=== PATIENT | female | born 1955 | race African-American/Black ===

== ENCOUNTER 2018-01-17 22:40 | Emergency (ER) | payer MEDICARE, MEDICAID ==
[~2018-01-17] VITALS: Ht 165.1 cm; Wt 68.0 kg
[2018-01-18 00:07] VITALS: BP 154/82
== END 2018-01-18 00:07 | disposition home or self-care (01) ==
LOC: ER 22:40
DX: E11.649 Type 2 diabetes mellitus with hypoglycemia without coma (principal); Z79.4 Long term (current) use of insulin; N28.9 Disorder of kidney and ureter, unspecified
CPT/HCPCS: 82962; 99283

== ENCOUNTER 2021-12-03 17:22 | Inpatient (IN) | payer MEDICARE, MEDICAID ==
[~2021-12-03] VITALS: Ht 165.1 cm; Wt 73.0 kg
[~2021-12-03 17:22] MED LIST: ATOR20TA65 MT; CLOP-31 PO; GABA-529 MT; METO75TA MT; PRED5TAB PO; PROT20 MT; TACR0.00 MC
[2021-12-03] MEDS ORDERED: CEFEPIME 1,000 MG in DEXTROSE 5% WATER 50 ML IV SCH (18:15)
[2021-12-03] MEDS ORDERED: VANCOMYCIN 1 G PREMIX 200 ML IV ONE (18:15)
[2021-12-03] MEDS ORDERED: ACETAMINOPHEN 325MG TABLET PO ONE (18:15)
[2021-12-03 18:51] LABS: HEMATOCRIT. 27.9 % (36.0-48.0); HEMOGLOBIN. 8.3 g/dL (12.0-16.0); MEAN CORPUSCULAR HEMOGLOBIN 21.1 pg (28.0-32.0); MEAN CORPUSCULAR VOLUME 70.9 fL (81.0-99.0); MEAN PLATELET VOLUME 7.9 fl (7.4-10.4); PLATELET 300 x1000/uL (130-400); RED BLOOD CELL COUNT 3.93 mill/uL (4.2-5.4)
[2021-12-03 18:54] LABS: CHLORIDE 121 mEq/L (98-107)
[2021-12-03 19:00] LABS: ETHANOL BLOOD < 10 mg/dL
[2021-12-03 19:03] LABS: CREATINE KINASE 52 IU/L (26-192)
[2021-12-03 19:23] LABS: PLATELET ESTIMATE NORMAL
[2021-12-03 20:20] LABS: BG BASE EXCESS -9.2 mmol/L (-2.0-2.0); BG CARBOXYHEMOGLOBIN 0.6 % (0.5-1.5); BG DEOXYHEMOGLOBIN 3.1 % (0.0-5.0); BG FRACTION INSPIRED OXYGEN 21; BG HCO3 ACT 15.7 mmol/L (22.0-26.0); BG METHEMOGLOBIN 0.5 % (0.0-1.5); BG OXYGEN SATURATION 96.9 % (92.0-98.5); BG OXYHEMOGLOBIN 95.8 % (94.0-97.0); BG PCO2 29.9 mmHg (35.0-45.0); BG PH 7.337 (7.350-7.450); BG PO2 91.6 mmHg (75.0-100.0); BG SAMPLE SITE RIGHT BRACHIAL; BG VENT MODE ROOM AIR
[2021-12-03] MEDS ORDERED: ONDANSETRON HCL 4MG/2ML INJ IV PRN (20:30)
[2021-12-03] MEDS ORDERED: ACETAMINOPHEN 325MG TABLET PO PRN (20:30)
[2021-12-03] MEDS ORDERED: DOCUSATE SODIUM 100MG CAPSULE PO PRN (20:30)
[2021-12-03] MEDS ORDERED: MAGNESIUM/ALUMINUM HYDROXIDE/SIMETHICONE 30ML UDC PO PRN (20:30)
[2021-12-03] MEDS ORDERED: CLONIDINE 0.1MG TABLET PO PRN (20:30)
[2021-12-03] MEDS ORDERED: SODIUM BICARBONATE 8.4% 1 MEQ/ML 50ML SYR IV NR (20:45)
[2021-12-03] MEDS: AMLODIPINE 10MG TABLET PO SCH (21:00)
[2021-12-03] MEDS: PIPERACILLIN/TAZOBACTAM 3.375 G in DEXTROSE 5% WATER 50 ML IV SCH (21:26)
[2021-12-03] MEDS: SODIUM CHLORIDE 0.9% 1,000 ML IV SCH (21:26)
[2021-12-03 22:51] LABS: CLARITY URINE TURBID (CLEAR); COLOR URINE YELLOW (YELLOW); KETONES URINE NEGATIVE (NEGATIVE); LEUKOCYTE ESTERASE URINE 3+ (NEGATIVE); NITRITE URINE POSITIVE (NEGATIVE); OCCULT BLOOD URINE 1+ (NEGATIVE); PROTEIN URINE 3+ (NEGATIVE); SPECIFIC GRAVITY URINE 1.012 (1.005-1.030); UROBILINOGEN URINE 0.2 E.U./dL (0.2-1.0)
[2021-12-03 23:05] LABS: *AMPHETAMINES SCREEN URINE NEGATIVE (NEGATIVE); *BARBITURATES SCREEN URINE NEGATIVE (NEGATIVE); *COCAINE SCREEN URINE NEGATIVE (NEGATIVE); METHADONE URINE SCREEN NEGATIVE (NEGATIVE); OPIATES URINE SCREEN NEGATIVE (NEGATIVE); PHENCYCLIDINE URINE SCREEN NEGATIVE (NEGATIVE)
[2021-12-03 23:06] LABS: CANNABINOID URINE SCREEN NEGATIVE (NEGATIVE)
[2021-12-03 23:07] LABS: *BENZODIAZEPINES SCREEN URINE NEGATIVE (NEGATIVE)
[2021-12-04 04:59] LABS: HEMATOCRIT. 27.9 % (36.0-48.0); HEMOGLOBIN. 8.7 g/dL (12.0-16.0); MEAN CORPUSCULAR HEMOGLOBIN 22.2 pg (28.0-32.0); MEAN CORPUSCULAR VOLUME 71.3 fL (81.0-99.0); MEAN PLATELET VOLUME 7.6 fl (7.4-10.4); PLATELET 286 x1000/uL (130-400); RED BLOOD CELL COUNT 3.92 mill/uL (4.2-5.4); RED CELL DISTRIBUTION WIDTH 19.3 % (11.6-14.6)
[2021-12-04 05:03] LABS: CHLORIDE 114 mEq/L (98-107)
[2021-12-04 05:11] LABS: HDL CHOLESTEROL 43 mg/dL (40-59); LDL CHOLESTEROL 76 mg/dL (5-100)
[2021-12-04 06:08] LABS: PLATELET ESTIMATE NORMAL
[2021-12-04] MEDS: PIPERACILLIN/TAZOBACTAM 3.375 G in DEXTROSE 5% WATER 50 ML IV SCH ×2 (09:00→20:11)
[2021-12-04] MEDS: SODIUM CHLORIDE 0.9% 1,000 ML IV SCH (09:51)
[2021-12-04] MEDS: AMLODIPINE 10MG TABLET PO SCH (10:18)
[2021-12-04] MEDS: INSULIN GLARGINE UD 100 UNITS/ML SYR SUBCUT SCH (13:00)
[2021-12-04 21:58] VITALS: BP 123/57
[2021-12-04 22:00] VITALS: BP 123/57
[2021-12-05] VITALS (8 sets, daily range): BP systolic 97–122; BP diastolic 39–89
[2021-12-05] MEDS: SODIUM CHLORIDE 0.9% 1,000 ML IV SCH ×3 (06:52→17:53)
[2021-12-05 07:18] LABS: CHLORIDE 115 mEq/L (98-107)
[2021-12-05 07:21] LABS: HEMATOCRIT. 23.2 % (36.0-48.0); HEMOGLOBIN. 7.1 g/dL (12.0-16.0); MEAN CORPUSCULAR VOLUME 72.1 fL (81.0-99.0); MEAN PLATELET VOLUME 7.9 fl (7.4-10.4); PLATELET 208 x1000/uL (130-400); RED BLOOD CELL COUNT 3.21 mill/uL (4.2-5.4); RED CELL DISTRIBUTION WIDTH 19.6 % (11.6-14.6)
[2021-12-05] MEDS: AMLODIPINE 10MG TABLET PO SCH (09:00)
[2021-12-05] MEDS: INSULIN GLARGINE UD 100 UNITS/ML SYR SUBCUT SCH (10:37)
[2021-12-05] MEDS: PIPERACILLIN/TAZOBACTAM 3.375 G in DEXTROSE 5% WATER 50 ML IV SCH ×2 (11:08→22:20)
[2021-12-05 11:42] LABS: PLATELET ESTIMATE NORMAL
[2021-12-05] MEDS ORDERED: DEXTROSE 50% WATER 50ML SYRINGE IV PRN (12:15)
[2021-12-05] MEDS: INSULIN LISPRO 100 UNITS/ML SUBCUT SCH ×3 (13:36→21:00)
[2021-12-05] MEDS: BLOOD SUGAR DIAGNOSTIC STRIP TEST SCH ×2 (17:14→21:00)
[2021-12-06] VITALS: BP 120/51
[2021-12-06 03:31] LABS: CLARITY URINE CLOUDY (CLEAR); COLOR URINE YELLOW (YELLOW); KETONES URINE NEGATIVE (NEGATIVE); LEUKOCYTE ESTERASE URINE 2+ (NEGATIVE); NITRITE URINE NEGATIVE (NEGATIVE); OCCULT BLOOD URINE 1+ (NEGATIVE); PH URINE 5.5 (4.5-8.0); PROTEIN URINE 1+ (NEGATIVE); SPECIFIC GRAVITY URINE 1.013 (1.005-1.030); UROBILINOGEN URINE 0.2 E.U./dL (0.2-1.0)
[2021-12-06 04:00] VITALS: BP 148/42
[2021-12-06] MEDS: BLOOD SUGAR DIAGNOSTIC STRIP TEST SCH ×4 (05:39→20:37)
[2021-12-06] MEDS: SODIUM CHLORIDE 0.9% 1,000 ML IV SCH ×2 (05:40→20:24)
[2021-12-06] MEDS: INSULIN LISPRO 100 UNITS/ML SUBCUT SCH ×4 (05:47→21:00)
[2021-12-06 07:34] LABS: BASOPHILS % 0.5 % (0.0-2.0); EOSINOPHILS % 3.3 % (0.0-5.0); HEMATOCRIT. 23.8 % (36.0-48.0); HEMOGLOBIN. 7.3 g/dL (12.0-16.0); LYMPHOCYTES % 7.6 % (20.0-50.0); MEAN CORPUSCULAR HEMOGLOBIN 21.7 pg (28.0-32.0); MEAN CORPUSCULAR VOLUME 70.6 fL (81.0-99.0); MONOCYTES % 7.3 % (2.0-8.0); NEUTROPHILS % 81.3 % (40.0-76.0); PLATELET 244 x1000/uL (130-400); RED BLOOD CELL COUNT 3.37 mill/uL (4.2-5.4); RED CELL DISTRIBUTION WIDTH 19.4 % (11.6-14.6)
[2021-12-06 08:00] VITALS: BP 138/54
[2021-12-06] MEDS: PIPERACILLIN/TAZOBACTAM 3.375 G in DEXTROSE 5% WATER 50 ML IV SCH ×2 (08:17→20:25)
[2021-12-06] MEDS: PREDNISONE 5MG TABLET PO SCH ×2 (08:44→16:30)
[2021-12-06] MEDS: AMLODIPINE 10MG TABLET PO SCH (08:44)
[2021-12-06] MEDS ORDERED: TACROLIMUS 1MG/PACKET PO SCH (09:00)
[2021-12-06] MEDS: INSULIN GLARGINE UD 100 UNITS/ML SYR SUBCUT SCH (10:48)
[2021-12-06] MEDS: TACROLIMUS 1MG CAPSULE PO SCH (10:52)
[2021-12-06 12:00] VITALS: BP 121/60
[2021-12-06 16:00] VITALS: BP 130/60
[2021-12-06] MEDS: GABAPENTIN 300MG CAPSULE PO SCH ×2 (16:29→21:00)
[2021-12-06] MEDS ORDERED: EPOETIN ALFA-EPBX 4,000 UNIT/ML VIAL SUBCUT SCH (21:00)
[2021-12-06] MEDS ORDERED: IRON SUCROSE COMPLEX 100 MG/5 ML ML IV SCH (21:00)
[2021-12-07] VITALS: BP 128/72
[2021-12-07 04:00] VITALS: BP 132/84
[2021-12-07] MEDS: BLOOD SUGAR DIAGNOSTIC STRIP TEST SCH ×2 (06:15→12:28)
[2021-12-07] MEDS: GABAPENTIN 300MG CAPSULE PO SCH ×2 (06:16→13:05)
[2021-12-07] MEDS: INSULIN LISPRO 100 UNITS/ML SUBCUT SCH ×2 (07:15→13:06)
[2021-12-07 08:00] VITALS: BP 132/51
[2021-12-07] MEDS: SODIUM CHLORIDE 0.9% 1,000 ML IV SCH (09:50)
[2021-12-07] MEDS: PREDNISONE 5MG TABLET PO SCH (09:50)
[2021-12-07] MEDS: TACROLIMUS 1MG CAPSULE PO SCH (09:51)
[2021-12-07] MEDS: PIPERACILLIN/TAZOBACTAM 3.375 G in DEXTROSE 5% WATER 50 ML IV SCH (09:51)
[2021-12-07] MEDS: AMLODIPINE 10MG TABLET PO SCH (09:51)
[2021-12-07] MEDS: INSULIN GLARGINE UD 100 UNITS/ML SYR SUBCUT SCH (10:00)
[2021-12-07 12:00] VITALS: BP 112/63
[2021-12-07 14:35] VITALS: BP 112/63
== END 2021-12-07 17:05 | disposition home health service (06) | DRG 871 ==
LOC: ER 17:22 → MICUSO 19:40 → 5WST 12-04 20:35
PROVIDERS: ADMIT Hospitalist; ATTEND Hospitalist
DX: A41.9 Sepsis, unspecified organism (principal); E43 Unspecified severe protein-calorie malnutrition; N17.0 Acute kidney failure with tubular necrosis; N39.0 Urinary tract infection, site not specified; Z94.0 Kidney transplant status; E87.2 Acidosis; E11.22 Type 2 diabetes mellitus with diabetic chronic kidney disease; I12.9 Hypertensive chronic kidney disease with stage 1 through stage 4 chronic kidney disease, or unspecified chronic kidney disease; N18.9 Chronic kidney disease, unspecified; Z20.822 Contact with and (suspected) exposure to COVID-19; D64.9 Anemia, unspecified; E88.09 Other disorders of plasma-protein metabolism, not elsewhere classified; Z87.440 Personal history of urinary (tract) infections; Z79.4 Long term (current) use of insulin; Z91.14 Patient's other noncompliance with medication regimen; Z91.19 Patient's noncompliance with other medical treatment and regimen; Z68.26 Body mass index [BMI] 26.0-26.9, adult; E11.65 Type 2 diabetes mellitus with hyperglycemia
CPT/HCPCS: 36415; 36600; 71045; 76770; 80048; 80053; 80061; 80197; 80305; 80307; 80320; 80329; 81003; 82010; 82140; 82375; 82550; 82805; 82962; 83036; 83605; 83880; 84484; 85025; 87426; 99291; J0692; J0885; J1815; J2543; J3370; J3490; J7060; J7507; J7512; G0480

== ENCOUNTER 2022-03-06 18:09 | Inpatient (IN) | payer MEDICARE, MEDICAID ==
[~2022-03-06] VITALS: Ht 157.5 cm; Wt 56.7 kg
[2022-03-06 19:26] LABS: HEMATOCRIT. 33.3 % (36.0-48.0); HEMOGLOBIN. 10.4 g/dL (12.0-16.0); MEAN CORPUSCULAR HEMOGLOBIN 23.3 pg (28.0-32.0); MEAN CORPUSCULAR VOLUME 74.3 fL (81.0-99.0); MEAN PLATELET VOLUME 7.8 fl (7.4-10.4); PLATELET 305 x1000/uL (130-400); RED BLOOD CELL COUNT 4.48 mill/uL (4.2-5.4); RED CELL DISTRIBUTION WIDTH 16.7 % (11.6-14.6)
[2022-03-06 19:35] LABS: CHLORIDE 105 mEq/L (98-107)
[2022-03-06 19:38] LABS: ETHANOL BLOOD < 10 mg/dL
[2022-03-06 23:26] LABS: PLATELET ESTIMATE NORMAL
[2022-03-07] MEDS ORDERED: CALCIUM GLUCONATE 1GM PREMIX 50 ML IV ONE (00:30)
[2022-03-07] MEDS ORDERED: DEXTROSE 50% WATER 50ML SYRINGE IV PRN (02:45)
[2022-03-07] MEDS: BLOOD SUGAR DIAGNOSTIC STRIP TEST SCH ×5 (02:53→21:02)
[2022-03-07] MEDS: INSULIN LISPRO 100 UNITS/ML SUBCUT SCH ×5 (02:53→21:21)
[2022-03-07 04:00] VITALS: BP 137/63
[2022-03-07] MEDS ORDERED: ACETAMINOPHEN 325MG TABLET PO PRN (05:30)
[2022-03-07 08:00] VITALS: BP 90/64
[2022-03-07] MEDS: PANTOPRAZOLE 40MG DR TABLET PO SCH (08:35)
[2022-03-07] MEDS: GABAPENTIN 100MG CAPSULE PO SCH ×2 (08:35→17:50)
[2022-03-07] MEDS: CLOPIDOGREL 75MG TABLET PO SCH (08:35)
[2022-03-07] MEDS ORDERED: METOPROLOL TARTRATE 50MG TABLET PO SCH (09:00)
[2022-03-07] MEDS: SODIUM CHLORIDE 0.9% 1,000 ML IV SCH (09:00)
[2022-03-07] MEDS: INSULIN GLARGINE 100 UNITS/ML SUBCUT SCH ×2 (10:00→21:11)
[2022-03-07 12:00] VITALS: BP 110/54
[2022-03-07 16:00] VITALS: BP 117/52
[2022-03-07 16:36] LABS: HEMATOCRIT. 32.2 % (36.0-48.0); HEMOGLOBIN. 9.6 g/dL (12.0-16.0); MEAN CORPUSCULAR HEMOGLOBIN 22.7 pg (28.0-32.0); MEAN CORPUSCULAR VOLUME 76.5 fL (81.0-99.0); MEAN PLATELET VOLUME 7.5 fl (7.4-10.4); PLATELET 294 x1000/uL (130-400); RED BLOOD CELL COUNT 4.21 mill/uL (4.2-5.4); RED CELL DISTRIBUTION WIDTH 16.9 % (11.6-14.6)
[2022-03-07 16:44] LABS: PHOSPHORUS 3.6 mg/dL (2.5-4.9)
[2022-03-07 19:30] LABS: PLATELET ESTIMATE NORMAL
[2022-03-07 20:00] VITALS: BP 153/53
[2022-03-07] MEDS: ATORVASTATIN CALCIUM 20MG TABLET PO SCH (21:11)
[2022-03-08] VITALS: BP 105/44
[2022-03-08 01:57] LABS: CLARITY URINE TURBID (CLEAR); COLOR URINE YELLOW (YELLOW); KETONES URINE TRACE (NEGATIVE); LEUKOCYTE ESTERASE URINE 3+ (NEGATIVE); NITRITE URINE NEGATIVE (NEGATIVE); OCCULT BLOOD URINE 2+ (NEGATIVE); PROTEIN URINE 2+ (NEGATIVE); SPECIFIC GRAVITY URINE 1.013 (1.005-1.030); UROBILINOGEN URINE 0.2 E.U./dL (0.2-1.0)
[2022-03-08 04:00] VITALS: BP 107/50
[2022-03-08] MEDS: SODIUM CHLORIDE 0.9% 1,000 ML IV SCH (04:21)
[2022-03-08] MEDS: BLOOD SUGAR DIAGNOSTIC STRIP TEST SCH ×4 (05:41→21:23)
[2022-03-08 06:46] LABS: MEAN CORPUSCULAR HEMOGLOBIN 23.3 pg (28.0-32.0); MEAN CORPUSCULAR VOLUME 77.2 fL (81.0-99.0); MEAN PLATELET VOLUME 7.6 fl (7.4-10.4); PLATELET 239 x1000/uL (130-400); RED BLOOD CELL COUNT 4.27 mill/uL (4.2-5.4); RED CELL DISTRIBUTION WIDTH 17.3 % (11.6-14.6)
[2022-03-08 08:00] VITALS: BP 131/42
[2022-03-08] MEDS: INSULIN LISPRO 100 UNITS/ML SUBCUT SCH ×4 (09:19→21:22)
[2022-03-08] MEDS: PANTOPRAZOLE 40MG DR TABLET PO SCH (09:19)
[2022-03-08] MEDS: GABAPENTIN 100MG CAPSULE PO SCH ×2 (09:19→18:07)
[2022-03-08] MEDS: CLOPIDOGREL 75MG TABLET PO SCH (09:19)
[2022-03-08] MEDS: INSULIN GLARGINE 100 UNITS/ML SUBCUT SCH ×2 (09:27→21:23)
[2022-03-08 10:00] LABS: PLATELET ESTIMATE NORMAL
[2022-03-08] MEDS ORDERED: VANCOMYCIN 1.25GM PMX (XELLIA) 250 ML IV SCH (11:00)
[2022-03-08 12:00] VITALS: BP 136/38
[2022-03-08] MEDS: TACROLIMUS 1MG CAPSULE PO SCH ×2 (14:18→18:07)
[2022-03-08] MEDS: PREDNISONE 5MG TABLET PO SCH (14:18)
[2022-03-08 16:00] VITALS: BP 131/42
[2022-03-08 20:00] VITALS: BP 110/43
[2022-03-08] MEDS: ATORVASTATIN CALCIUM 20MG TABLET PO SCH (21:18)
[2022-03-08] MEDS: LINEZOLID 600 MG PREMIX 300 ML IV SCH (21:23)
[2022-03-09] VITALS: BP 110/68
[2022-03-09 04:00] VITALS: BP 113/69
[2022-03-09] MEDS: SODIUM CHLORIDE 0.9% 1,000 ML IV SCH ×2 (04:38→15:15)
[2022-03-09] MEDS: BLOOD SUGAR DIAGNOSTIC STRIP TEST SCH ×4 (06:09→21:21)
[2022-03-09 08:00] VITALS: BP 95/34
[2022-03-09] MEDS: CLOPIDOGREL 75MG TABLET PO SCH (08:18)
[2022-03-09] MEDS: GABAPENTIN 100MG CAPSULE PO SCH ×2 (08:18→16:31)
[2022-03-09] MEDS: PANTOPRAZOLE 40MG DR TABLET PO SCH (08:18)
[2022-03-09] MEDS: TACROLIMUS 1MG CAPSULE PO SCH ×2 (08:18→16:31)
[2022-03-09] MEDS: PREDNISONE 5MG TABLET PO SCH (08:18)
[2022-03-09] MEDS: INSULIN LISPRO 100 UNITS/ML SUBCUT SCH ×4 (08:19→21:21)
[2022-03-09] MEDS: LINEZOLID 600 MG PREMIX 300 ML IV SCH ×2 (08:26→21:21)
[2022-03-09 09:14] LABS: HEMATOCRIT. 33.1 % (36.0-48.0); HEMOGLOBIN. 9.8 g/dL (12.0-16.0); MEAN CORPUSCULAR HEMOGLOBIN 23.1 pg (28.0-32.0); MEAN CORPUSCULAR VOLUME 77.9 fL (81.0-99.0); MEAN PLATELET VOLUME 7.3 fl (7.4-10.4); PLATELET 261 x1000/uL (130-400); RED BLOOD CELL COUNT 4.24 mill/uL (4.2-5.4); RED CELL DISTRIBUTION WIDTH 17.6 % (11.6-14.6)
[2022-03-09] MEDS: INSULIN GLARGINE 100 UNITS/ML SUBCUT SCH ×2 (09:31→21:32)
[2022-03-09] MEDS: CEFEPIME 1,000 MG in DEXTROSE 5% WATER 50 ML IV SCH (11:34)
[2022-03-09 12:00] VITALS: BP 120/41
[2022-03-09 12:24] LABS: PLATELET ESTIMATE NORMAL
[2022-03-09 16:00] VITALS: BP 98/64
[2022-03-09 16:47] LABS: HEPATITIS B SURFACE ANTIGEN NEGATIVE
[2022-03-09 20:00] VITALS: BP 101/50
[2022-03-09] MEDS: ATORVASTATIN CALCIUM 20MG TABLET PO SCH (21:20)
[2022-03-10] VITALS: BP 122/45
[2022-03-10 04:00] VITALS: BP 105/37
[2022-03-10] MEDS: SODIUM CHLORIDE 0.9% 1,000 ML IV SCH ×3 (06:20→18:19)
[2022-03-10 07:20] LABS: HEMATOCRIT. 29.1 % (36.0-48.0); MEAN CORPUSCULAR HEMOGLOBIN 23.5 pg (28.0-32.0); MEAN CORPUSCULAR VOLUME 76.3 fL (81.0-99.0); MEAN PLATELET VOLUME 7.3 fl (7.4-10.4); PLATELET 222 x1000/uL (130-400); RED BLOOD CELL COUNT 3.82 mill/uL (4.2-5.4); RED CELL DISTRIBUTION WIDTH 17.1 % (11.6-14.6)
[2022-03-10] MEDS: BLOOD SUGAR DIAGNOSTIC STRIP TEST SCH ×4 (07:30→21:12)
[2022-03-10 08:00] VITALS: BP 90/36
[2022-03-10] MEDS: INSULIN LISPRO 100 UNITS/ML SUBCUT SCH ×7 (08:11→21:37)
[2022-03-10] MEDS: GABAPENTIN 100MG CAPSULE PO SCH ×2 (08:12→16:48)
[2022-03-10] MEDS: CLOPIDOGREL 75MG TABLET PO SCH (08:12)
[2022-03-10] MEDS: TACROLIMUS 1MG CAPSULE PO SCH ×2 (08:12→16:48)
[2022-03-10] MEDS: PREDNISONE 5MG TABLET PO SCH (08:12)
[2022-03-10] MEDS: LINEZOLID 600 MG PREMIX 300 ML IV SCH (08:14)
[2022-03-10] MEDS: FAMOTIDINE 20MG TABLET PO SCH (08:14)
[2022-03-10 08:50] LABS: PLATELET ESTIMATE NORMAL
[2022-03-10] MEDS: INSULIN GLARGINE 100 UNITS/ML SUBCUT SCH ×2 (10:00→21:39)
[2022-03-10] MEDS: CEFEPIME 1,000 MG in DEXTROSE 5% WATER 50 ML IV SCH (11:42)
[2022-03-10 12:00] VITALS: BP 91/34
[2022-03-10] MEDS ORDERED: CEPH500T MT (15:37)
[2022-03-10 16:00] VITALS: BP 96/35
[2022-03-10] MEDS: ATORVASTATIN CALCIUM 20MG TABLET PO SCH (21:12)
[2022-03-11] VITALS: BP 112/30
[2022-03-11 04:00] VITALS: BP 107/43
[2022-03-11] MEDS: BLOOD SUGAR DIAGNOSTIC STRIP TEST SCH ×3 (04:45→17:08)
[2022-03-11] MEDS: SODIUM CHLORIDE 0.9% 1,000 ML IV SCH ×2 (04:45→17:20)
[2022-03-11 08:00] VITALS: BP 103/49
[2022-03-11] MEDS: INSULIN LISPRO 100 UNITS/ML SUBCUT SCH ×6 (08:10→17:22)
[2022-03-11] MEDS: CLOPIDOGREL 75MG TABLET PO SCH (09:30)
[2022-03-11] MEDS: GABAPENTIN 100MG CAPSULE PO SCH ×2 (09:30→17:21)
[2022-03-11] MEDS: FAMOTIDINE 20MG TABLET PO SCH (09:30)
[2022-03-11] MEDS: PREDNISONE 5MG TABLET PO SCH (09:30)
[2022-03-11] MEDS: TACROLIMUS 1MG CAPSULE PO SCH ×2 (09:55→17:20)
[2022-03-11] MEDS: INSULIN GLARGINE 100 UNITS/ML SUBCUT SCH (11:14)
[2022-03-11] MEDS: CEFEPIME 1,000 MG in DEXTROSE 5% WATER 50 ML IV SCH (11:48)
[2022-03-11 12:00] VITALS: BP 106/40
[2022-03-11] MEDS ORDERED: LINEZOLID 600 MG PREMIX 300 ML IV SCH (12:00)
[2022-03-11 16:00] VITALS: BP 101/40
[2022-03-11 17:29] VITALS: BP 101/40
== END 2022-03-11 19:05 | disposition home health service (06) | DRG 871 ==
LOC: ER 18:17 → EDBEDREQ 20:21 → EDBEDREQTM 03-07 00:31 → 7WST 03-07 00:31 → EDBEDREQSVC 03-07 00:33 → EDBEDREQTM 03-07 00:33 → EDBEDREQ 03-07 00:33 → ENRESERV 03-07 01:40
PROVIDERS: ADMIT Internal Medicine; ATTEND Internal Medicine
DX: A41.59 Other Gram-negative sepsis (principal); E43 Unspecified severe protein-calorie malnutrition; G93.41 Metabolic encephalopathy; N17.0 Acute kidney failure with tubular necrosis; N18.6 End stage renal disease; T86.19 Other complication of kidney transplant; N39.0 Urinary tract infection, site not specified; E87.1 Hypo-osmolality and hyponatremia; I12.0 Hypertensive chronic kidney disease with stage 5 chronic kidney disease or end stage renal disease; N76.4 Abscess of vulva; L97.929 Non-pressure chronic ulcer of unspecified part of left lower leg with unspecified severity; L97.919 Non-pressure chronic ulcer of unspecified part of right lower leg with unspecified severity; D63.8 Anemia in other chronic diseases classified elsewhere; E11.22 Type 2 diabetes mellitus with diabetic chronic kidney disease; E11.65 Type 2 diabetes mellitus with hyperglycemia; E87.5 Hyperkalemia; E11.51 Type 2 diabetes mellitus with diabetic peripheral angiopathy without gangrene; L89.156 Pressure-induced deep tissue damage of sacral region; N76.2 Acute vulvitis; E78.00 Pure hypercholesterolemia, unspecified; E11.42 Type 2 diabetes mellitus with diabetic polyneuropathy; Y83.0 Surgical operation with transplant of whole organ as the cause of abnormal reaction of the patient, or of later complication, without mention of misadventure at the time of the procedure; Z79.899 Other long term (current) drug therapy; Z68.22 Body mass index [BMI] 22.0-22.9, adult; Y92.89 Other specified places as the place of occurrence of the external cause
CPT/HCPCS: 36415; 71045; 76770; 80048; 80053; 80320; 81003; 82040; 82962; 83036; 83605; 83880; 83970; 84100; 84134; 84145; 84484; 85025; 87070; 87077; 87106; 87186; 93005; 93923; 97162; 99285; J0610; J0692; J1815; J2020; J3370; J7030; J7060; J7507; J7512; A4315; G0480